=== PATIENT | male | born 2000 | race Caucasian/White ===

== ENCOUNTER 2020-05-02 14:57 | Emergency (ER) | payer BC, OTHER ==
[~2020-05-02] VITALS: Ht 175.3 cm; Wt 83.9 kg
[2020-05-02] MEDS ORDERED: CYCLOGYL2 M1 OPHTHALMIC (16:36)
[2020-05-02] MEDS ORDERED: PRED FORTE 1% EY5 M1 OPHTHALMIC (16:36)
[2020-05-02] MEDS ORDERED: NORCO 5-325 TA1 EAC1 PO (16:39)
[2020-05-02 17:19] VITALS: BP 143/85
== END 2020-05-02 17:20 | disposition home or self-care (01) ==
LOC: ER 14:57
DX: H20.9 Unspecified iridocyclitis (principal); H53.142 Visual discomfort, left eye

== ENCOUNTER → 2020-05-07 | Outpatient (CLI) | payer OTHER, BC ==
[~2020-05-07] MED LIST: CYCLOGYL2 M1 OPHTHALMIC; NORCO 5-325 TA1 EAC1 PO; PRED FORTE 1% EY5 M1 OPHTHALMIC
[2020-05-07 14:41] LABS: ABSOLUTE NEUTROPHILS 3.6 thou/uL (1.4-8.2); BASOPHILS 0.6 % (0.0-2.0); EOSINOPHILS 0.4 % (0.0-3.0); HEMATOCRIT 46.9 % (42.0-52.0); HEMOGLOBIN 16.1 gm/dL (14.0-18.0); LYMPHOCYTES 27.2 % (24.0-44.0); MCH 30.3 pg (26.0-34.0); MCHC 34.3 g/dL (28.0-37.0); MCV 88.3 fL (80.0-100.0); MONOCYTES 9.4 % (1.0-8.0); POLYS 62.4 % (36.0-66.0); RBC 5.31 mil/uL (4.50-6.00); RDW 13.3 % (10.5-14.5); WBC 5.8 thou/uL (4.0-11.0)
[2020-05-07 15:14] LABS: PLATELET COUNT 199 thou/uL (150-400); PLATELET ESTIMATE NORMAL
[2020-05-08 16:07] LABS: ANTI-DNA SCREEN <1 IU/mL (0-9); ANTI-RNP 0.2 AI (0.0-0.9)
[2020-05-09 07:09] LABS: HSV 1 IgG <0.91 index (0.00-0.90); HSV 2 IgG <0.91 index (0.00-0.90)
[2020-05-09 21:06] LABS: SYPHILIS AB Non Reactive (Non Reactive)
== END ==
LOC: RAD 13:40
PROVIDERS: ATTEND Ophthalmology
DX: H20.9 Unspecified iridocyclitis (principal)

== ENCOUNTER → 2020-05-23 | Outpatient (CLI) | payer OTHER, BC ==
[2020-05-23 13:33] LABS: ABSOLUTE NEUTROPHILS 2.9 thou/uL (1.4-8.2); BASOPHILS 0.8 % (0.0-2.0); EOSINOPHILS 0.8 % (0.0-3.0); HEMATOCRIT 45.7 % (42.0-52.0); HEMOGLOBIN 15.6 gm/dL (14.0-18.0); LYMPHOCYTES 29.5 % (24.0-44.0); MCH 30.2 pg (26.0-34.0); MCHC 34.1 g/dL (28.0-37.0); MCV 88.5 fL (80.0-100.0); MONOCYTES 10.1 % (1.0-8.0); PLATELET COUNT 161 thou/uL (150-400); POLYS 58.8 % (36.0-66.0); RBC 5.16 mil/uL (4.50-6.00); RDW 13.5 % (10.5-14.5); WBC 4.9 thou/uL (4.0-11.0)
[2020-05-23 13:55] LABS: ALBUMIN 4.3 g/dL (3.4-5.0); CREATININE 0.7 mg/dL (0.7-1.3); POTASSIUM 3.7 mmol/L (3.5-5.1); TOTAL BILIRUBIN 0.7 mg/dL (0.2-1.0); TOTAL PROTEIN 7.3 g/dL (6.4-8.2)
[2020-05-24 00:06] LABS: GLYCOHEMOGLOBIN (HGB A1C) 11.2 % (4.8-5.6)
== END ==
LOC: LAB 12:37
PROVIDERS: ATTEND Family Medicine
DX: R73.09 Other abnormal glucose (principal)